=== PATIENT | male | born 1985 | race Caucasian/White ===

== ENCOUNTER 2016-09-15 10:17 | Emergency (ER) | payer OTHER ==
--- NOTE | ~2016-09-15 | CR94 ---
[facility] A Service of [facility] RADIOLOGY TEXT RESULTS PATIENT: JAEL OCONNOR LOCATION: [facility] : [birth year] UNIT #: [id number] AGE: [address]: Eileen Dye APRN SEX: M ORDER DR: [id number] [facility] [address] [place], [place] [address] [id number] E MR#: [id number] Acc #: [id number] NAME: JAEL OCONNOR. : 1985 SEX: M STUDY DATE/TIME: 09/15/2016 10:22 UNIT: SADI ROOM: STUDY DESCRIPTION: CR Elbow Min 3 Views Rt Attending Physician: Eileen Dye A.P.R.N. Ordering Physician: Ed Nahum Costa M.D. Primary Care Physician: No Primary Care Physician MEDICAL IMAGING REPORT This report is preliminary unless electronic signature is present EXAM Right elbow, 3 views INDICATION 31-year-old male with right elbow pain for 2 days. Posterior pain. COMPARISON No comparisons. FINDINGS No joint effusion, fracture, or dislocation. The soft tissue structures are unremarkable. IMPRESSION Negative. Dictated by... Reji Gupta M.D. THIS IS AN ELECTRONICALLY VERIFIED REPORT Reji Gupta M.D. at 09/15/2016 5:03 PM ROM/jewels TD: 09/15/2016 11:52 JOB #: [id number] MEDICAL IMAGING REPORT Page 1 of 1 COPY
[~2016-09-15 10:17] MED LIST: ACETAMINOPHEN PO; AUGMENTIN PO; BACTRIM DS TABL1 TAB PO; FLEXERIL10 MG PO; IBUPROFEN PO; IBUPROFEN800 MG PO; LORTAB 5/500 TA1 TA1 PO; MEDROL DOSEPAK4 MG PO; NAPROXEN PO; NEOSPORIN OINTM15 GM TOP; PREVACID PO; ULTRAM PO
== END 2016-09-15 11:33 | disposition home or self-care (01) ==
LOC: CED 10:17
DX: R20.2 Paresthesia of skin (principal); Z21 Asymptomatic human immunodeficiency virus [HIV] infection status; F17.200 Nicotine dependence, unspecified, uncomplicated; K75.9 Inflammatory liver disease, unspecified; Z79.899 Other long term (current) drug therapy
CPT/HCPCS: 73080; 99283